=== PATIENT | female | born 1955 | race African-American/Black ===

== ENCOUNTER 2022-06-18 11:36 | Outpatient (CLI) | payer MEDICARE, SELFPAY ==
[2022-06-18 17:09] LABS: Alanine Aminotransferase 44 U/L (6-35); Albumin Level 4.4 g/dL (3.5-5.1); Alkaline Phosphatase 70 U/L (38-126); Anion Gap 5 mmol/L (8-16); Aspartate Amino Transferase 61 U/L (14-36); Bilirubin,Total 0.5 mg/dL (0.2-1.3); Blood Urea Nitrogen 18 mg/dL (7-17); Calcium 9.8 mg/dL (8.4-10.2); Carbon Dioxide 33 mmol/L (22-30); Chloride 100 mmol/L (98-107); Cholesterol 256 mg/dL (0-200); Estimated Glomerular Filt Rate > 60; Glucose 150 mg/dL (65-110); HDL Direct 89 mg/dL; Potassium 3.2 mmol/L (3.4-5.0); Sodium 138 mmol/L (137-145); Triglycerides 70 mg/dL (<150)
[2022-06-18 17:20] LABS: LDL Cholesterol Direct 109 mg/dL; Vitamin D 25 Hydroxy 24.3 ng/mL
[2022-06-18 17:35] LABS: Creatinine Urine 151.9 mg/dL
[2022-06-18 17:39] LABS: MALB Creatinine Ratio 81.1 mg/g (0-30); Microalbumin Urine Random 123.2 mg/L (0-16.7)
[2022-06-18 17:42] LABS: Thyroid Stimulating Hormone 0.702 uIU/mL (0.465-4.680)
[2022-06-24 04:54] LABS: C-Peptide 2.62 ng/mL (0.80-3.85)
== END 2022-06-18 11:37 | disposition home or self-care (01) ==
LOC: ANHWCLAB 11:37
PROVIDERS: PCP Family Medicine; Visit Provider Internal Medicine Endocrinology, Diabetes & Metabolism
DX: Z78.0 Asymptomatic menopausal state (principal); E78.5 Hyperlipidemia, unspecified; E11.65 Type 2 diabetes mellitus with hyperglycemia; R79.89 Other specified abnormal findings of blood chemistry
CPT/HCPCS: 36415; 80053; 80061; 82043; 82306; 82607; 84443; 84681